=== PATIENT | male | born 1995 | race Two or more races ===

== ENCOUNTER → 2021-06-09 | Outpatient (CLI) | payer OTHER ==
[2021-06-10 05:07] LABS: RUBELLA AB IGG-REFLAB 1.88 index (Immune >0.99); RUBEOLA (MEASLES) IGG 29.2 AU/mL (Immune >16.4)
[2021-06-11 06:06] LABS: QUANTIFERON, TB GOLD PLUS Positive (Negative)
== END | disposition home or self-care (01) ==
LOC: LABMN 16:00
PROVIDERS: ATTEND Family Medicine
DX: Z11.3 Encounter for screening for infections with a predominantly sexual mode of transmission (principal); Z02.89 Encounter for other administrative examinations; Z20.828 Contact with and (suspected) exposure to other viral communicable diseases; Z20.1 Contact with and (suspected) exposure to tuberculosis
CPT/HCPCS: 86480; 86592; 86706; 86762; 86765; 86787; 87350; 87591

== ENCOUNTER → 2021-06-15 | Outpatient (CLI) | payer OTHER | END | disposition home or self-care (01) | LOC: MSR 10:12 | PROVIDERS: ATTEND Family Medicine | DX: Z02.89 Encounter for other administrative examinations (principal); Z11.3 Encounter for screening for infections with a predominantly sexual mode of transmission; Z20.828 Contact with and (suspected) exposure to other viral communicable diseases; Z20.1 Contact with and (suspected) exposure to tuberculosis | CPT/HCPCS: 71046; 86735; 87340; 87491; 36415-L1; 36415-TC ==